=== PATIENT | female | born 1950 | race Caucasian/White ===

== ENCOUNTER 2022-04-02 12:48 | Inpatient (IN) | payer MEDICARE, MEDICAID ==
[~2022-04-02] VITALS: Ht 149.9 cm; Wt 44.8 kg
[~2022-04-02 12:48] MED LIST: CITA40TA22 PO; LEVO75TA PO; LORA0.5T PO; LOSA25TA96 PO; MILK THISTLE300 MG PO; OMEG1CAP54 PO; ONDA4TAB6 PO; [UNRECOGNIZED DRUG - CODE] PO
[2022-04-02 14:42] LABS: BASOPHILS # (AUTO) 0.1 X10'3 (0-0.2); EOSINOPHILS # (AUTO) 0.3 X10'3 (0-0.9); EOSINOPHILS % (AUTO) 2.2 % (0-6); HEMATOCRIT 42.8 % (35.0-45.0); HEMOGLOBIN 14.2 g/dl (12.0-16.0); LYMPHOCYTES # (AUTO) 4.3 X10'3 (1.1-4.8); LYMPHOCYTES % (AUTO) 32.4 % (21-51); MEAN CORPUSCULAR HEMOGLOBIN 26.7 PG (27.0-31.0); MEAN CORPUSCULAR HGB CONC 33.1 g/dL (33.0-36.5); MEAN CORPUSCULAR VOLUME 80.6 FL (78-98); MEAN PLATELET VOLUME 8.1 FL (7.4-10.4); MONOCYTES # (AUTO) 0.7 X10'3 (0-0.9); MONOCYTES % (AUTO) 5.4 % (2-12); NEUTROPHILS # (AUTO) 7.9 X10'3 (1.8-7.7); PLATELET COUNT 196 X10'3 (140-440); RED BLOOD COUNT 5.31 X10'6 (4.20-5.60); RED CELL DISTRIBUTION WIDTH 17.1 % (11.5-14.5); WHITE BLOOD COUNT 13.4 X10'3 (4.5-11.0)
--- NOTE | 2022-04-02 14:50 | NUR ---
Pt stated that the month of April is overwhelming to her because he committed suicide 40 years ago in April and it was his month, and their anniversary. She rehersed hanging herself on multiple occations. Pt asked her primary care provider for help today and [facility] Crisis Team assisted pt and placed her on the 5150 hold. Pt is cooperative, anxious, and agreed to not harm herself while in our care.
[2022-04-02 14:52] LABS: ALANINE AMINOTRANSFERASE 16 U/L (12-78); ALBUMIN/GLOBULIN RATIO 0.8 (1.1-1.5); ALKALINE PHOSPHATASE 102 IU/L (46-116); ANION GAP 9 (8-16); ASPARTATE AMINO TRANSFERASE 19 U/L (10-37); BILIRUBIN,TOTAL 0.3 MG/DL (0.1-1.0); BLOOD UREA NITROGEN 15 MG/DL (7-18); CALCIUM 9.9 MG/DL (8.5-10.1); CHLORIDE 102 MMOL/L (99-107); CREATININE 0.94 MG/DL (0.40-0.90); ETHANOL < 0.010 GM/DL (0.0-0.010); GLUCOSE 96 MG/DL (70-104); POTASSIUM 3.9 MMOL/L (3.5-5.1); SODIUM 140 MMOL/L (135-145); TOTAL CARBON DIOXIDE 28.6 MMOL/L (24-32); TOTAL PROTEIN 8.9 G/DL (6.4-8.2); eGFR 59 ML/MIN
[2022-04-02] MEDS ORDERED: MV-M1TAB19 PO (15:28)
[2022-04-02] MEDS ORDERED: PHYT100T PO (15:28)
[2022-04-02] MEDS ORDERED: MAGN200T PO (15:28)
[2022-04-02 15:30] LABS: URINE AMPHETAMINE SCREEN NEGATIVE (Neg); URINE BARBITUATE SCREEN NEGATIVE (Neg); URINE BENZODIAZEPINES SCREEN NEGATIVE (Neg); URINE CANNABINOID SCREEN POSITIVE (Neg); URINE COCAINE SCREEN NEGATIVE (Neg); URINE METHADONE SCREEN NEGATIVE (Neg); URINE OPIATE SCREEN NEGATIVE (Neg); URINE PHENCYCLIDINE SCREEN NEGATIVE (Neg)
--- NOTE | 2022-04-02 15:30 | NUR ---
Pt axiously paces the floor.
[2022-04-02] MEDS ORDERED: CHOL400T57 PO (15:32)
[2022-04-02] MEDS ORDERED: nicotine 14mg patch - 24hr TD ONE (15:55)
[2022-04-02] MEDS ORDERED: LEVO112T5 PO (16:33)
[2022-04-02 16:40] LABS: GLUCOSE, URINE NEGATIVE (Neg); KETONES,URINE NEGATIVE (Neg); LEUKOCYTE ESTERASE ,URINE NEGATIVE (Neg); NITRITES, URINE NEGATIVE (Neg); OCCULT BLOOD,URINE NEGATIVE (Neg); PH,URINE 7.5 (4.8-8.0); PROTEIN,URINE TRACE mg/dl (Neg); UROBILINOGEN,URINE 0.2 E.U/dL (0.2-1.0)
[2022-04-02 16:42] LABS: CLARITY,URINE SLIGHTLY CLOUDY (Clear); COLOR,URINE STRAW (Yellow); UA COLLECTION TYPE STRAIGHT CATH
[2022-04-02 16:51] LABS: HYALINE CASTS 0-3 /LPF (NEGATIVE); SQUAMOUS EPITHELIAL CELL,UR MODERATE /LPF (FEW)
[2022-04-02 16:52] LABS: RBC,URINE 0-2 /HPF (0-2)
[2022-04-02 16:53] LABS: BACTERIA,URINE FEW /HPF (Neg)
--- NOTE | 2022-04-02 17:54 | NUR ---
Pt's sister, Silvina, in to visit and bring her equipment for self cathing, denture supplies, and hearing aid ehs manager.
--- NOTE | 2022-04-02 18:42 | NUR ---
Patient's nicotine patch removed. Nicotine lozenges 2 mg will be used q 2 hrs prn for nicotine craving.
[2022-04-02] MEDS ORDERED: LORazepam 1 MG tablet PO ONE (19:35)
--- NOTE | 2022-04-02 19:35 | NUR ---
Patient was sitting in bed exhibiting calm behavior. Her visitor had went home. The patient suddenly became labile. Patient became demanding. With effort the patient was redirected to some degree. This television writer contacted the [facility]. An order for Ativan 1mg PO now with a may repeat X1 in an hour if necessary. The patient was advised.
[2022-04-02] MEDS: NICOTINE POLACRILEX 2 MG LOZENGE BC PRN (19:42)
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
--- NOTE | 2022-04-02 20:07 | NUR ---
Patient uses restroom and self cath's to void. She then presents to nurses station and rants about previous medical doctors. "People have been mean to me all my life." Patient then returns to bed.
--- NOTE | 2022-04-02 21:38 | NUR ---
Patient is sleeping quietly, no distress.
--- NOTE | 2022-04-02 23:17 | NUR ---
Patient coughs, then screams out in her sleep. Patient remains asleep. She has self repositioned in bed.
--- NOTE | 2022-04-02 23:24 | NUR ---
cell phone givin to family member
--- NOTE | 2022-04-03 02:39 | NUR ---
Patient is sleeping quietly on her left side. The bed is in a low fowlers position.
--- NOTE | 2022-04-03 04:32 | NUR ---
Patient is sleeping on her left side. She has self repositioned.
[2022-04-03] MEDS: levoTHYROXINE 112mcg tablet PO SCH (07:28)
[2022-04-03] MEDS: cholecalciferol (vitamin D3) 400 unit (10mcg) tablet PO SCH (07:28)
[2022-04-03] MEDS: magnesium oxide 400mg tablet PO SCH (07:29)
[2022-04-03] MEDS: losartan 25mg tablet PO SCH (07:31)
--- NOTE | 2022-04-03 08:30 | NUR ---
tech resent packet to [facility]
--- NOTE | 2022-04-03 08:45 | NUR ---
Pt awake and intermittently getting OOB pacing in front of nursing station
--- NOTE | 2022-04-03 10:12 | NUR ---
Pt has been getting OOB and pacing in front of nurses station. Pt requesting medication so her mind will "shut up". Spoke with Dr. Baez and received VO for Ativan 1mg PO x 1 now.
[2022-04-03] MEDS ORDERED: LORazepam 1 MG tablet PO ONE (10:15)
--- NOTE | 2022-04-03 11:00 | NUR ---
Pt seen by [facility] superintendent job and pt to remain on 5150. Pt tearful and pleas to go home. Pt keeps making reference "it's my body, my right", "I can't do this anymore".
--- NOTE | 2022-04-03 11:20 | NUR ---
Pt currently laying quietly in bed
--- NOTE | 2022-04-03 13:00 | NUR ---
Pt refused lunch tray and currently resting with eyes closed.
--- NOTE | 2022-04-03 14:24 | NUR ---
monitoring patients during primary rn break, pt is resting quietly on right side respirations even and unlabored.
--- NOTE | 2022-04-03 16:45 | NUR ---
Pt went to bathroom, pt personal urinary supplies given as pt self caths
[2022-04-03 21:35] VITALS: BP 125/89
[2022-04-03] MEDS ORDERED: acetaminophen 325mg tablet PO PRN (21:55)
[2022-04-03] MEDS ORDERED: magnesium hydroxide 30ml (MOM) UD suspension PO PRN (21:55)
[2022-04-03] MEDS ORDERED: mag hydrox/Alum hydrox/simeth 30ml oral suspension PO PRN (21:55)
[2022-04-03] MEDS ORDERED: loperamide 2mg capsule PO PRN (21:55)
--- NOTE | 2022-04-03 22:56 | NUR ---
ADMIT NOTE: Patient reported that she attempted to hang herself a couple days ago, and she continues to endorse suicidal ideation, with a plan to hang herself. She is unable to safety plan.
--- NOTE | 2022-04-04 05:26 | NUR ---
Patient is awake and labile. "I need an antidepressant, the world is against me, I'm isolating." Patient was given her charged hearing aids. Patient also self cath's since her hysterectomy around 20 years ago. The patient is redirected back to her room.
[2022-04-04] MEDS: LORazepam 1 MG tablet PO PRN ×2 (05:33→13:13)
--- NOTE | 2022-04-04 05:34 | NUR ---
Patient was given a PO Ativan for anxiety.
[2022-04-04 08:00] VITALS: BP 110/78
[2022-04-04] MEDS: magnesium oxide 400mg tablet PO SCH (08:33)
[2022-04-04] MEDS: losartan 25mg tablet PO SCH (08:34)
[2022-04-04] MEDS: levoTHYROXINE 112mcg tablet PO SCH (08:34)
[2022-04-04] MEDS: cholecalciferol (vitamin D3) 400 unit (10mcg) tablet PO SCH (08:34)
[2022-04-04 09:33] LABS: CHOL/HDL RATIO 5.9 (0.00-4.99); CHOLESTEROL 264 MG/DL (0-200); HDL CHOLESTEROL 45 MG/DL (35-60); LDL CHOLESTEROL 174 MG/DL (50-100); TRIGLYCERIDES 216 MG/DL (20-135)
[2022-04-04 09:38] LABS: HEMOGLOBIN A1C 5.7 % (4.5-6.2)
[2022-04-04] MEDS ORDERED: nicotine 7mg patch - 24hr TD ONE (11:25)
--- NOTE | 2022-04-04 17:56 | NUR ---
Nursing Progress Note: Problem: Patient reported that she attempted to hang herself a couple days ago, and she continues to endorse suicidal ideation, with a plan to hang herself. She is unable to safety plan. Intervention: Provided with a safe and therapeutic environment, clear communication, active listening and positive encouragement. Response: Patient is resting quietly in bed at the start of the shift. Cooperative with medications. Resistive to 1:1 assessment stating, No one cares anyways. Youre just gonna drug me! Patient verbalizes issues with family relationships and insists that she does not want to feel this way any longer. States, I just want to kill the feelings. I just want to kill all of it! Open the door and let me out! Patient states that her family does not care about her and that she sees no reason to go on living. PRN Ativan is given which appears helpful. Therapeutic listening and encouragement are provided. Patient then takes a nap. Plan: Patient continues to require crisis interruption and stabilization with medication management and monitoring in a safe and therapeutic environment.
[2022-04-04 19:00] VITALS: BP 126/78
[2022-04-04] MEDS ORDERED: LORazepam 1 MG tablet PO PRN (21:05)
[2022-04-05] MEDS: LORazepam 0.5 MG tablet PO PRN ×2 (07:45→16:33)
[2022-04-05] MEDS: levoTHYROXINE 112mcg tablet PO SCH (07:45)
[2022-04-05] MEDS: magnesium oxide 400mg tablet PO SCH (07:45)
[2022-04-05] MEDS: cholecalciferol (vitamin D3) 400 unit (10mcg) tablet PO SCH (07:45)
[2022-04-05] MEDS: nicotine 7mg patch - 24hr TD SCH (07:46)
[2022-04-05] MEDS: venlafaxine XR 37.5mg cap (Q24H) PO SCH (07:50)
[2022-04-05 08:00] VITALS: BP 120/61
[2022-04-05] MEDS: losartan 25mg tablet PO SCH (08:00)
[2022-04-05] MEDS: hydrOXYzine 10 MG tablet PO PRN ×2 (12:32→19:59)
--- NOTE | 2022-04-05 18:17 | NUR ---
Nursing Progress Note: Problem: Patient reported that she attempted to hang herself a couple days ago, and she continues to endorse suicidal ideation, with a plan to hang herself. She is unable to safety plan. Intervention: Provided with a safe and therapeutic environment, clear communication, active listening and positive encouragement. Response: Patient is resting quietly in bed at the start of the shift. Cooperative with medications and assessment. Patient is tearful and appears depressed. Denies suicidal ideation but then states, Im no better off here. I could kill myself here. Jacquelyn been looking around thinking of ways to kill myself here all day. I could do it. PRN Ativan is given x2, atarax x1. Patient perseverates on discharge. Plan: Patient continues to require crisis interruption and stabilization with medication management and monitoring in a safe and therapeutic environment.
--- NOTE | 2022-04-05 18:45 | NUR ---
Patient is angry and marching down the hallway at the end of report. She states she is angry because the dinner tray had not been removed from her room as requested.
[2022-04-05 20:00] VITALS: BP 136/77
[2022-04-05] MEDS: traZODone 50mg tablet PO PRN (21:59)
[2022-04-06] MEDS: LORazepam 0.5 MG tablet PO PRN ×2 (05:15→21:41)
--- NOTE | 2022-04-06 05:51 | NUR ---
Nursing Progress Note: Problem: Patient reported that she attempted to hang herself a couple days ago, and she continues to endorse suicidal ideation, with a plan to hang herself. She is unable to safety plan. Intervention: Provided with a safe and therapeutic environment, clear communication, active listening and positive encouragement. Response: Patient is restless this shift. She complains about the unfairness of her life. She states she wants to leave. "I don't know why my family doesn't care about me, they hate me." The patient states she just wants to get this life over. When this writer editor listened to patients multiple complaints on many occasions, the patient attempted this writer editor. The patient tells this writer editor that she isn't looking to hear answers to her questions, "I just want to have you listen to my complaints. Patient presents as angry. She remains suicidal. "I just want to go home." Plan: Patient continues to require crisis interruption and stabilization with medication management and monitoring in a safe and therapeutic environment.
[2022-04-06 07:00] VITALS: BP 133/95
[2022-04-06] MEDS: magnesium oxide 400mg tablet PO SCH (08:48)
[2022-04-06] MEDS: venlafaxine XR 37.5mg cap (Q24H) PO SCH (08:50)
[2022-04-06] MEDS: cholecalciferol (vitamin D3) 400 unit (10mcg) tablet PO SCH (08:50)
[2022-04-06] MEDS: losartan 25mg tablet PO SCH (08:50)
[2022-04-06] MEDS: levoTHYROXINE 112mcg tablet PO SCH (08:50)
[2022-04-06] MEDS: nicotine 7mg patch - 24hr TD SCH (08:51)
--- NOTE | 2022-04-06 09:00 | NUR ---
Patient refused all of her morning medications except her Levothyroxine. Patient is demanding to be discharged.
--- NOTE | 2022-04-06 16:59 | NUR ---
Nursing Progress Note: Problem: Patient reported that she attempted to hang herself a couple days ago, and she continues to endorse suicidal ideation, with a plan to hang herself. She is unable to safety plan. Intervention: Provided with a safe and therapeutic environment, clear communication, active listening and positive encouragement. Response: Received patient sleeping in bed at shift change. Patient awakens and starts talking to a family member named "Don". Patient increasingly became agitated throughout the conversation, and started demanding to be discharged. Patient was unwilling to take her morning medications, and only took her Levothyroxine, stating that she was not taking any more medications, and that this morning she was so drowsy that she could not get out of bed. Encouraged patient to take medications, and there was nothing that would make her drowsy, but patient continued to refuse. Patient slept on and off the rest of the day. Plan: Patient continues to require crisis interruption and stabilization with medication management and monitoring in a safe and therapeutic environment.
[2022-04-06 19:22] VITALS: BP 146/88
--- NOTE | 2022-04-06 20:58 | NUR ---
Nursing Progress Note: Problem: Patient reported that she attempted to hang herself a couple days ago, and she continues to endorse suicidal ideation, with a plan to hang herself. She is unable to safety plan. Intervention: Provided with a safe and therapeutic environment, clear communication, active listening and positive encouragement. Response: Pt requested to have her hearing aids charged at change of shift and returned to her room. Pt spent early evening napping quietly in her room. Pt was given 5250 notice and she refused to sign paperwork stating "I want to go to my sisters house my doctor tricked me into coming here and I will never see another doctor again. I was all calmed down and getting ready to go to sleep and now Im anxious and can't sleep! This bed is uncomfortable and I want to leave!" Offered prn meds and pt refused. "Im not taking anything!" Offered to help patient repostion her bed and she refused. Pt came to the nurses station a few minutes later and apologized for yelling. Pt states it is the anniversary of her husbands suicide and she had a "weak moment" Pt states she promised her children she wouldnt commit suicide and she was only "practicing during a weak moment." Pt states she has family and friends that are willing to stay with her now and feels she would be better off at home. pt agreed to take prn for sleep. Plan: Patient continues to require crisis interruption and stabilization with medication management and monitoring in a safe and therapeutic environment. Addendum: 04/06/22 at 2315 by Pilar Villafuerte RN Pt requested prn ativan
[2022-04-06] MEDS: traZODone 50mg tablet PO PRN (21:12)
--- NOTE | 2022-04-07 07:24 | NUR ---
Initial: Pt admitted w/ major depressive disorder and SI per EMR. Currently on Regular diet w/ variable intake, avg 32% of meals partially meeting need. Will provide smoothies/shakes TID for additional calories and protein. [facility] 04/04. Will continue to monitor. Recs: 1. Continue Regular diet as tolerated; encourage PO intake 2. Smoothie WB, Shakes BIDBD 3. Bowel care PRN 4. Weekly wts Addendum: 04/07/22 at [address] Amended: Links added.
[2022-04-07] MEDS: cholecalciferol (vitamin D3) 400 unit (10mcg) tablet PO SCH (07:49)
[2022-04-07] MEDS: levoTHYROXINE 112mcg tablet PO SCH (07:49)
[2022-04-07] MEDS: losartan 25mg tablet PO SCH (07:50)
[2022-04-07] MEDS: magnesium oxide 400mg tablet PO SCH (07:50)
[2022-04-07] MEDS: venlafaxine XR 37.5mg cap (Q24H) PO SCH (07:51)
[2022-04-07] MEDS: nicotine 7mg patch - 24hr TD SCH (07:55)
[2022-04-07 08:00] VITALS: BP 107/79
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
[2022-04-07 19:53] VITALS: BP 136/85
--- NOTE | 2022-04-07 21:18 | NUR ---
Nursing Progress Note: Problem: Patient reported that she attempted to hang herself a couple days ago, and she continues to endorse suicidal ideation, with a plan to hang herself. She is unable to safety plan. Intervention: 1:1 assessment, therapeutic conversation, active listening, ensured contract for safety, medication administration/education/monitoring, provided a safe and therapeutic environment, provided encouragement, and positive feedback, Q15 minute safety checks. Response: Pt was up at change of shift and requested hearing aids be charged. Pt c/o sane nurse not working correctly because the yellow light didnt come on initially when she placed the left hearing aid in the sane nurse, but both lights seemed to be working after hearing aids were properly inserted in sane nurse. Pt was in her room socializing with roommate, and laughing. Pt c/o anxiety and requested night time medications. Found that both patients nighttime meds had been discontinued because she reported they had made her drowsy the last two days. (pt had requested to take them last night despite initially c/o drowsiness.) Explained to pt I would ask the doctor about it and let her know. Pt got into bed and was napping, then woke and was very agitated, yelling at staff "this is all your fault! Youre an idiot! You're lying, I know you messed up my medications!" Explained to pt I had called the provider and would bring her the Ativan, (she makes it clear she does not want trazodone) Provided pt with ativan and she continued to yell "Where is my Elixir!" Explained to pt Effexor is ordered for the morning and pt continued to yell. Pt threatens that she is going to leave tommorow, is calling the news, is calling the police. Pt eventually took her meds, continued to yell and then went to bed. Plan: Patient continues to require crisis interruption and stabilization with medication management and monitoring in a safe and therapeutic environment. Addendum: 04/07/22 at 2139 by Pilar Villafuerte RN Pt was also yelling "youre lying on this paperwork! Im not an alcoholic! You wrote alcoholic and Im not an alcoholic!" Pts paperwork mentions nothing about alcoholism.
[2022-04-08] MEDS: traZODone 50mg tablet PO SCH ×2 (00:50→20:17)
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
[2022-04-08] MEDS: levoTHYROXINE 112mcg tablet PO SCH ×2 (07:00→07:31)
[2022-04-08 07:26] VITALS: BP 146/89
--- NOTE | 2022-04-08 07:36 | NUR ---
Pt refused her Synthroid this morning stating, "I don't want anything, I don't want anything today." Will offer again later.
[2022-04-08] MEDS: cholecalciferol (vitamin D3) 400 unit (10mcg) tablet PO SCH (08:46)
[2022-04-08] MEDS: venlafaxine XR 37.5mg cap (Q24H) PO SCH (08:46)
[2022-04-08] MEDS: LORazepam 0.5 MG tablet PO PRN (08:46)
[2022-04-08] MEDS: losartan 25mg tablet PO SCH (08:47)
[2022-04-08] MEDS: magnesium oxide 400mg tablet PO SCH (08:47)
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
[2022-04-08] MEDS: nicotine 14mg patch - 24hr TD SCH (08:51)
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
--- NOTE | 2022-04-08 14:40 | NUR ---
Nursing Progress Note: Problem: Patient reported that she attempted to hang herself a couple days ago, and she continues to endorse suicidal ideation, with a plan to hang herself. She is unable to safety plan. Intervention: 1:1 assessment, therapeutic conversation, active listening, ensured contract for safety, medication administration/education/monitoring, provided a safe and therapeutic environment, provided encouragement, and positive feedback, Q15 minute safety checks. Response: Pt initially refused her medications this morning but after some 1:1 time/therapeutic conversation with this RN, pt agreed to take them. Pt became tearful and distraught during the conversation. She voiced how she was just done with everything, how she felt she and her children were just a burden on everybody, how she had no reason to go on living. Pt wished to take some Ativan for her nerves. She was given PRN Ativan 0.5 mg at 0846. Pt received a visit from a sister today. Pt c/o feeling drugged and "seeing double." Pt napped for much of the morning. Pt asked if she had been given Trazodone this morning. Educated pt that the effects were probably from PRN Ativan she took today. Pt replied, "oh well"...(little giggle)..."I'll get used to it." Notified Dr Morton of pt's complaints/effect that the Ativan 0.5 mg had on her. Plan: Patient continues to require crisis interruption and stabilization with medication management and monitoring in a safe and therapeutic environment to prevent harm to herself.
[2022-04-08] MEDS: acetaminophen 325mg tablet PO PRN (16:39)
[2022-04-08 20:00] VITALS: BP 138/76
--- NOTE | 2022-04-09 05:16 | NUR ---
Nursing Progress Note: Problem: Patient reported that she attempted to hang herself a couple days ago, and she continues to endorse suicidal ideation, with a plan to hang herself. She is unable to safety plan. Intervention: 1:1 assessment, therapeutic conversation, active listening, ensured contract for safety, medication administration/education/monitoring, provided a safe and therapeutic environment, provided encouragement, and positive feedback, Q15 minute safety checks. Response: Patient was observed sleeping at change of shift. Patient continued to sleep until receiving scheduled trazodone. Patient asked for hearing aids to be placed on silver service waiter and returned to sleep. Patient proceeded to get up and down throughout the night asking for different things from staff. Patient became agitated when refused and started complaining about staff with roommate. Patient refused additional trazodone although she slept very little, Plan: Patient continues to require crisis interruption and stabilization with medication management and monitoring in a safe and therapeutic environment to prevent harm to herself.
[2022-04-09] MEDS: levoTHYROXINE 112mcg tablet PO SCH (07:33)
[2022-04-09] MEDS: magnesium oxide 400mg tablet PO SCH (07:45)
[2022-04-09] MEDS: atorvastatin 20mg tablet PO SCH (07:45)
[2022-04-09] MEDS: nicotine 14mg patch - 24hr TD SCH (07:45)
[2022-04-09] MEDS: venlafaxine XR 37.5mg cap (Q24H) PO SCH (07:46)
[2022-04-09] MEDS: losartan 25mg tablet PO SCH (07:46)
[2022-04-09] MEDS: cholecalciferol (vitamin D3) 400 unit (10mcg) tablet PO SCH (07:46)
[2022-04-09 08:00] VITALS: BP 125/71
--- NOTE | 2022-04-09 13:47 | NUR ---
5250 upheld for DTS
[2022-04-09] MEDS ORDERED: magnesium oxide 400mg tablet PO SCH (14:47)
--- NOTE | 2022-04-09 15:27 | NUR ---
Nursing Progress Note: Problem: Patient reported that she attempted to hang herself a couple days ago, and she continues to endorse suicidal ideation, with a plan to hang herself. She is unable to safety plan. Intervention: Provided 1:1 assessment with therapeutic conversation and active listening, medication administration/education/monitoring, provided a safe and therapeutic environment, provided positive feedback, monitored Q15 minute safety checks. Response: Pt took her medications as prescribed without hesitation. She spent time talking with another RN about her voodoo beliefs and experiences. She napped on and off throughout the day. Affect flat with some brightening. Plan: Patient continues to require crisis interruption and stabilization with medication management and monitoring in a safe and therapeutic environment to prevent harm to herself. Addendum: 04/09/22 at 1636 by Bethany Dong RN Pt came out of her room tearful stating, "I don't want to be here anymore." She complained about her children and family not caring about her. She also c/o of a ALVAREZ. Pt given Ativan 0.5mg and Tylenol 650mg. Pt laid down and told this nurse, "I'm done talking I guess I'll just be locked up forever."
[2022-04-09] MEDS: LORazepam 0.5 MG tablet PO PRN (16:29)
[2022-04-09] MEDS: NICOTINE POLACRILEX 2 MG LOZENGE BC PRN (16:30)
[2022-04-09] MEDS: acetaminophen 325mg tablet PO PRN (16:30)
[2022-04-09] MEDS ORDERED: traZODone 50mg tablet PO PRN (18:45)
[2022-04-09 20:52] VITALS: BP 143/89
--- NOTE | 2022-04-10 02:01 | NUR ---
Nursing Progress Note: Problem: Patient reported that she attempted to hang herself a couple days ago, and she continues to endorse suicidal ideation, with a plan to hang herself. She is unable to safety plan. Intervention: Provided 1:1 assessment with therapeutic conversation and active listening, medication administration/education/monitoring, provided a safe and therapeutic environment, provided positive feedback, monitored Q15 minute safety checks. Response: Patient was found sleeping at change of shift. Patient spent majority of shift self isolating in room except for coming out to ask for hearing aids to be placed on manager car. Patient was seen multiple times socializing with roommate. Patient agreed to take increased trazodone to help her sleep. Plan: Patient continues to require crisis interruption and stabilization with medication management and monitoring in a safe and therapeutic environment to prevent harm to herself.
[2022-04-10] MEDS: nicotine 14mg patch - 24hr TD SCH (08:21)
[2022-04-10] MEDS: venlafaxine XR 37.5mg cap (Q24H) PO SCH (08:22)
[2022-04-10] MEDS: levoTHYROXINE 112mcg tablet PO SCH (08:23)
[2022-04-10] MEDS: losartan 25mg tablet PO SCH (08:23)
[2022-04-10] MEDS: atorvastatin 20mg tablet PO SCH (08:23)
[2022-04-10] MEDS: cholecalciferol (vitamin D3) 400 unit (10mcg) tablet PO SCH (08:23)
[2022-04-10 08:30] VITALS: BP 144/93
[2022-04-10] MEDS ORDERED: ATOR20TA66 PO (12:57)
[2022-04-10] MEDS ORDERED: VENL75TA90 PO (12:57)
[2022-04-10] MEDS ORDERED: TRAZ-251 PO (12:57)
[2022-04-10] MEDS ORDERED: NICO-631 TD (12:57)
[2022-04-10] MEDS ORDERED: VITD400T PO (12:57)
[2022-04-10] MEDS ORDERED: LEVO112T5 PO (12:57)
[2022-04-10] MEDS ORDERED: LOSA25TA41 PO (12:57)
--- NOTE | 2022-04-10 15:07 | NUR ---
Discharge Note: Paperwork and follow up reviewed with the patient who is agreeable to discharge home to self-care. Escorted off the unit by staff with all of her belongings at 13:55 and is picked up by family. Discharged with the following instructions: Follow-Up: Patient has been scheduled/referred to the following providers for post-hospital discharge and aftercare treatment. Psychiatrist: [facility] will call you next week to schedule you an appointment with Roosevelt Kimble NP Primary Care Provider: Appointment: 06/03/22 at 2 PM with Leeann Sims [address] [address] Discharge Address: [place] Lopez [address] Transportation: Sister Patient given community crisis services information and National suicide hotline handout. Resources for education regarding mental illness: [address] [address] For urgent mental health crisis needs please contact Mobile Crisis Outreach Team Wednesday through Wednesday 8:30am to 5:00pm. . Mobile Crisis Outreach Team [address] [place] [id number] Urgent Out-patient Mental Health Services 365 Days A Year: [address] [address] Hours: Mon thru Fri 12pm-9pm Weekends 11am-9pm
== END 2022-04-10 14:00 | disposition home or self-care (01) | DRG 885 ==
LOC: ER 12:48 → ED HOLD 04-03 17:40 → ADULT MH 04-03 21:38
PROVIDERS: ADMIT Psychiatry & Neurology Psychiatry; ATTEND Psychiatry & Neurology Psychiatry
DX: F33.2 Major depressive disorder, recurrent severe without psychotic features (principal); R45.851 Suicidal ideations; Z20.822 Contact with and (suspected) exposure to COVID-19; I10 Essential (primary) hypertension; E03.9 Hypothyroidism, unspecified; F17.210 Nicotine dependence, cigarettes, uncomplicated; F41.9 Anxiety disorder, unspecified; E78.5 Hyperlipidemia, unspecified; Z90.710 Acquired absence of both cervix and uterus; Z88.5 Allergy status to narcotic agent; Z88.2 Allergy status to sulfonamides; Z88.8 Allergy status to other drugs, medicaments and biological substances; Z90.49 Acquired absence of other specified parts of digestive tract; Z82.49 Family history of ischemic heart disease and other diseases of the circulatory system; Z83.3 Family history of diabetes mellitus; Z82.3 Family history of stroke; Z56.0 Unemployment, unspecified; Z84.89 Family history of other specified conditions; Z91.14 Patient's other noncompliance with medication regimen
CPT/HCPCS: 36415; 80053; 80061; 80305; 80320; 81001; 83036; 84443; 85025; 87081; 87088; 87811; 99285; A4353